=== PATIENT | female | born 1960 | race African-American/Black ===

== ENCOUNTER 2016-11-22 15:25 | Inpatient (IN) | payer MEDICARE ==
--- NOTE | ~2016-11-22 | OR ---
Unit #: [id number] #: [id number] Patient: MARNIE SOLER [id number] [address] [address] [id number] I MR#: [id number] NAME: MARNIE SOLER ROOM: 465 Date of Procedure: 11/24/2016 Admission Date: 11/22/2016 Surgeon: Mark Tinsley M.D. : 1960 Attending Physician: Dejan White M.D. Primary Care Physician: Brandie Romeo OPERATIVE REPORT PREOPERATIVE DIAGNOSIS Right distal radius fracture. POSTOPERATIVE DIAGNOSIS Right distal radius fracture. PROCEDURE PERFORMED Application of right short-arm cast. ASSISTANTS Adolph and Jocelyne. ANESTHESIA None. INDICATIONS FOR PROCEDURE This 56-year-old female, fell 2 days ago sustaining a minimally displaced right distal radius fracture. She has pre-existing right hemiparesis and left nondisplaced patellar fracture as well. She does not have significant displacement to warrant open reduction and internal fixation. She will, therefore, be treated in a short-arm fiberglass cast. DESCRIPTION OF PROCEDURE With the patient supine in bed, a stockinette was applied with appropriate cast padding, two layers of 3 inch fiberglass was applied, and a well-padded well-molded short-arm fiberglass cast was applied without difficulty. The patient tolerated the procedure well. PLAN Plan is to keep the cast on for 6 weeks and to limit her weightbearing using a platform walker. Dictated by..Marisa Reveles/lacho TD: 11/25/2016 00:05 JOB #: [id number] Unit #: [id number] #: [id number] Patient: MARNIE SOLER OPERATIVE REPORT Page 1 of 1 X Marc Tisnley MD X PROCEDURE OPERATIVE NOTE
--- NOTE | ~2016-11-22 | CR282 ---
[facility] Service of [facility] & [facility] RADIOLOGY TEXT RESULTS PATIENT: MARNIE SOLER LOCATION: [facility] 465-01 : 60 UNIT #: [id number] AGE: [address]: Dejan White MD SEX: F ORDER DR: [id number] [place], [place] [address] [id number] I MR#: [id number] Acc #: [id number] NAME: MARNIE SOLER : 1960 SEX: F STUDY DATE/TIME: 11/23/2016 22:50 UNIT: [facility] ROOM: [facility] STUDY DESCRIPTION: CR Wrist Min 3 View Rt Attending Physician: Dejan White M.D. Ordering Physician: Mark Tinsley M.D. Primary Care Physician: Brandie Romeo MEDICAL IMAGING REPORT This report is preliminary unless electronic signature is present EXAM Right wrist INDICATION Wrist fracture yesterday with fall. These are postreduction images. FINDINGS 4 images were obtained of the wrist with the wrist in a fiberglass cast. There is a fracture visible in the distal radius. The fracture plane is running through the longitudinal plane through the bone and is about 2-3 cm long. There does not appear to be any significant change between this study and the previous images. There is minimal displacement. Dictated by... Alessandro Pichardo M.D. THIS IS AN ELECTRONICALLY VERIFIED REPORT Alessandro Pichardo M.D. at 11/24/2016 3:38 AM Richelle TD: 11/24/2016 01:00 JOB #: [id number] MEDICAL IMAGING REPORT Page 1 of 1 COPY
--- NOTE | ~2016-11-22 | CR142 ---
[facility] A Service of [facility] RADIOLOGY TEXT RESULTS PATIENT: MARNIE SOLER LOCATION: [place] [address]- : 60 UNIT #: [id number] AGE: [address]: OMER DAVE MD SEX: F ORDER DR: [id number] [place] [address] [id number] [facility]. [place], [place] [address] [id number] E MR#: [id number] Acc #: [id number] NAME: MARNIE SOLER : 1960 SEX: F STUDY DATE/TIME: 11/22/2016 17:34 UNIT: [facility] ROOM: STUDY DESCRIPTION: CR Hand Min 3 Views Rt Attending Physician: Anand Solares M.D. Ordering Physician: Anand Solares M.D. Primary Care Physician: Brandie Parra M.D. MEDICAL IMAGING REPORT This report is preliminary unless electronic signature is present EXAM Right hand, 11/22/2016 INDICATIONS Fell today; pain, swelling. TECHNIQUE 3 views of the right hand. COMPARISON No comparisons. FINDINGS The bones are osteoporotic. There is nonstandard positioning. These were the best images possible, given the patient's functional status. There is a complete mildly displaced fracture of the distal radius with interarticular extension to the radiocarpal joint. The fracture has both longitudinal and transversely oriented components. On the lateral projection, there is diastases of the longitudinal component up to about 3-4 mm. No distinct additional fracture. IMPRESSION 1. Osteoporosis with a stellate complete interarticular fracture of the distal radius. There appear to be both longitudinal and transversely oriented components to the fracture with diastases of the longitudinal component up to 3-4 mm. 2. Soft tissue swelling. STAT * RESULT Dictated by... Too Castrejon M.D. [facility] A Service of [facility] RADIOLOGY TEXT RESULTS PATIENT: MARNIE SOLER LOCATION: [facility] 465- : 60 UNIT #: [id number] AGE: [address]: OMER DAVE MD SEX: F ORDER DR: THIS IS AN ELECTRONICALLY VERIFIED REPORT Too Castrejon M.D. at 11/22/2016 11:04 PM Alex TD: 11/22/2016 18:42 JOB #: [id number] MEDICAL IMAGING REPORT Page 1 of 1 COPY
--- NOTE | ~2016-11-22 | CT71 ---
[facility] A Service of [facility] RADIOLOGY TEXT RESULTS PATIENT: MARNIE SOLER LOCATION: [facility] 465-01 : 60 UNIT #: [id number] AGE: [address]: Dejan White MD SEX: F ORDER DR: [id number] [facility] [address] [facility]. [place], [place] [address] [id number] I MR#: [id number] Acc #: [id number] NAME: MARNIE SOLER : 1960 SEX: F STUDY DATE/TIME: 11/23/2016 16:43 UNIT: [facility] ROOM: [facility] STUDY DESCRIPTION: CT Head Wo Contrast Attending Physician: Dejan White M.D. Ordering Physician: Dejan White M.D. Primary Care Physician: Brandie Parra M.D. MEDICAL IMAGING REPORT This report is preliminary unless electronic signature is present EXAM Head CT without contrast, 11/23/2016 HISTORY Generalized weakness and fall on 11/22/2016. Overall decline, increased forgetfulness since 11/22/2016. Hypertension and diabetes. Previous stroke. FINDINGS Multiple axial images were obtained from the skull base to vertex without intravenous contrast administration. This CT exam was performed with one or more of the following radiation dose reduction techniques: Automatic exposure control, adjustment of mA and/or kV according to patient size, and iterative reconstruction. There is a large area of encephalomalacia involving the left middle cerebral artery distribution, characteristic of an old infarct. There is mild generalized atrophy. There is no midline shift. There is no mass or mass effect, hemorrhage or acute infarct. The visualized paranasal sinuses are clear. 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 No acute intracranial abnormality. Dictated by... Dustin Marte M.D. THIS IS AN ELECTRONICALLY VERIFIED REPORT Dustin Marte M.D. at 11/24/2016 8:30 AM HARISH/kirsten [facility] A Service [facility] RADIOLOGY TEXT RESULTS PATIENT: MARNIE SOLER LOCATION: [facility] 465- : 60 UNIT #: [id number] AGE: [address]: Dejan White MD SEX: F ORDER DR: TD: 11/23/2016 21:35 JOB #: [id number] MEDICAL IMAGING REPORT Page 1 of 1 COPY
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
--- NOTE | ~2016-11-22 | EKG ---
PATIENT: MARNIE SOLER UNIT #: [id number] Ventricular Rate: 80 BPM Atrial Rate: 80 BPM P-R Interval: 152 ms QRS Duration: 92 ms Q-T Interval: 400 ms QTC Calculation(Bezet): 461 ms P [place]: 68 degrees Calculated R [place]: 64 degrees Calculated T [place]: 52 degrees Diagnosis Line: Normal sinus rhythm Diagnosis Line: Normal ECG Diagnosis Line: When compared with ECG of 11-SEP-2015 22:38, Diagnosis Line: No significant change was found Diagnosis Line: Confirmed by BASSAM VARGAS MD ([id number]) on Diagnosis Line: 11/23/2016 9:10:34 PM INTERPRETING MD: KARINA
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
--- NOTE | ~2016-11-22 | CR172 ---
[facility] A Service of [facility] RADIOLOGY TEXT RESULTS PATIENT: MARNIE SOLER LOCATION: [facility] 465-01 : 60 UNIT #: [id number] AGE: [address]: OMER DAVE MD SEX: F ORDER DR: [id number] [place] [id number] [facility]. [place], [place] [address] [id number] E MR#: [id number] Acc #: [id number] NAME: MARNIE SOLER : 1960 SEX: F STUDY DATE/TIME: 11/22/2016 17:29 UNIT: [facility] ROOM: STUDY DESCRIPTION: CR Knee 3 Views Lt Attending Physician: Anand Solares M.D. Ordering Physician: Anand Solares M.D. Primary Care Physician: Brandie Parra M.D. MEDICAL IMAGING REPORT This report is preliminary unless electronic signature is present EXAM Left knee 11/22/2016 INDICATIONS 56-year-old female with pain, weakness and swelling since a fall today. Pain and swelling in the left knee. TECHNIQUE Left knee, 3 views. COMPARISON No comparisons. FINDINGS Examination is abnormal. There is a stellate fracture through the patella involving its mid and inferior aspects. The inferior margin of the stellate fracture is complete. There is a joint effusion with probable blood products. There is degenerative change of the quadriceps tendon insertion. IMPRESSION 1. Stellate complete fracture of the patella. No significant displacement. 2. Joint effusion. 3. Soft tissue swelling anteriorly. STAT * RESULT Dictated by... Too Castrejon M.D. THIS IS AN ELECTRONICALLY VERIFIED REPORT [facility] A Service of [facility] RADIOLOGY TEXT RESULTS PATIENT: MARNIE SOLER LOCATION: [facility] 465-01 : [birth year] UNIT #: [id number] AGE: [address]: OMER DAVE MD SEX: F ORDER DR: Too Castrejon M.D. at 11/22/2016 11:04 PM OLGA/mario TD: 11/22/2016 18:39 JOB #: [id number] MEDICAL IMAGING REPORT Page 1 of 1 COPY
--- NOTE | ~2016-11-22 | CR282 ---
[facility] A Service of [facility] & [facility] RADIOLOGY TEXT RESULTS PATIENT: MARNIE SOLER LOCATION: [facility] 465-01 : [birth year] UNIT #: [id number] AGE: [address]: Dejan White MD SEX: F ORDER DR: [id number] [facility] [address] [facility]. [place], [place] [address] [id number] I MR#: [id number] Acc #: [id number] NAME: MARNIE SOLER : 1960 SEX: F STUDY DATE/TIME: 11/22/2016 17:36 UNIT: [facility] ROOM: [facility] STUDY DESCRIPTION: CR Wrist Min 3 View Rt Attending Physician: Kael Villalobos M.D. Ordering Physician: Anand Solares M.D. Primary Care Physician: Brandie Romeo MEDICAL IMAGING REPORT This report is preliminary unless electronic signature is present EXAM Right wrist, 11/22/2016 INDICATIONS Wrist pain and weakness with swelling after fall today. FINDINGS 4 views of the wrist were obtained. Patient is osteopenic. There is a comminuted intraarticular fracture of the distal radius. Primary fracture fragments are only mildly displaced. Additionally, there is some cortical irregularity along the peripheral margin of the triquetrum which could reflect a nondisplaced fracture. IMPRESSION Osteopenia. Comminuted intraarticular fracture of the distal radius, mildly displaced. There is also questionable nondisplaced fracture of the triquetrum. Dictated by... Cheo Rehman Jr., M.D. THIS IS AN ELECTRONICALLY VERIFIED REPORT Cheo Rehman Jr., M.D. at 11/23/2016 10:01 AM CHARLIE/hermila TD: 11/23/2016 03:59 JOB #: [id number] MEDICAL IMAGING REPORT Page 1 of 1 COPY
[~2016-11-22 15:25] MED LIST: ALLERGY10 M2 PO; AMLODIPINE BESYL5 MG PO; ASPIRIN81 MG; BACTRIM DS TABL1 TA2 PO; BAYER CHEWABLE81 MG PO; DYRENIUM100 MG PO; FERRO-TIME325 MG PO; FLEXERIL PO; GLIPIZIDE2.5 MG/BO1 PO; GLUCOPHAGE XR500 MG PO; KETOPROFEN PO; LISINOPRIL-HCTZ1 T15 PO; MEDROL4 MG/DOSE- PO; MOBIC PO; PAROXETINE HCL20 MG PO; PHENERGAN DM1 ML PO; PROTONIX PO; TRIAMCINOLONE A15 G3 EXT; TRIAMTERENE-HC1 EACH; VITAMIN C1000 M2 PO; WOMEN'S DAILY F1 TAB PO; ZITHROMAX PO; [UNRECOGNIZED DRUG - SUPPLY]
[2016-11-22 17:29] LABS: URINE SOURCE CLEAN CATCH
[2016-11-22 17:39] LABS: URINE APPEARANCE CLEAR; URINE BILIRUBIN NEG (NEG); URINE BLOOD NEG (NEG); URINE COLOR YELLOW; URINE GLUCOSE 100 MG/DL (NEG); URINE KETONE NEG (NEG); URINE LEUKOCYTE ESTERASE TRACE (NEG); URINE NITRATE NEG (NEG); URINE PH 7.5 (5-8); URINE PROTEIN TRACE (NEG); URINE SPECIFIC GRAVITY 1.012 (1.003-1.035)
[2016-11-22 17:42] LABS: CULTURE INDICATED? YES; U HYALINE CASTS AUWI 0-2 /[LPF]; URBCS1 AUWI 0-2 /[HPF] (0-2); URINE BACTERIA AUWI NEG (NEGATIVE); URINE SQUAMOUS EPITHELIAL CELL OCC /[HPF]
[2016-11-22 18:16] LABS: BASOPHIL% 0.3 % (0-2.5); EOSINOPHIL% 0.3 % (0.0-7.0); HEMATOCRIT 38.5 % (35.0-45.0); HEMOGLOBIN 12.3 gm/dL (12.0-16.0); LYMPHOCYTE# 1.5 X10e3 (1.0-3.5); LYMPHOCYTE% 18.9 % (17.0-45.0); MEAN CELL VOLUME 89.5 FL (83-96); MEAN CORPUSCULAR HEMOGLOBIN 28.6 PG (28-34); MEAN CORPUSCULAR HGB CONC 31.9 g/dL (30-36); MEAN PLATELET VOLUME 7.9 FL (6.5-11.5); MONOCYTE# 0.9 X10e3 (0-1.0); MONOCYTE% 11.4 % (3.0-12.0); NEUTROPHIL# 5.5 X10e3 (1.5-7.1); NEUTROPHIL% 69.1 % (40-75); PLATELET COUNT 207 X10e3 (140-420); RED CELL DISTRIBUTION WIDTH 14.6 % (11.0-15.5)
[2016-11-22 18:23] LABS: DIFF IND NO
[2016-11-22 18:40] LABS: ALBUMIN SERUM 3.6 g/dL (3.5-5.0); BILIRUBIN, DIRECT 0.1 mg/dL (0.0-0.2); BILIRUBIN,INDIRECT 0.5 mg/dL (0.0-0.9); BILIRUBIN,TOTAL 0.6 mg/dL (0.2-2.0); BUN/CREATININE RATIO 15.71; CALCIUM SERUM 8.8 mg/dL (8.4-10.2); CREATININE SERUM 0.7 mg/dL (0.6-1.4); GLOM FILT RATE Estimated 112.3 mL/min (>60); POTASSIUM 3.2 mmol/L (3.5-5.1); PROTEIN TOTAL SERUM 7.7 g/dL (6.0-8.3)
[2016-11-22] MEDS ORDERED: GLIPIZIDE10 MG PO (20:40)
[2016-11-22] MEDS ORDERED: ASPIRIN81 M2 PO (20:40)
[2016-11-22] MEDS ORDERED: PAXIL10 MG PO (20:41)
[2016-11-22] MEDS ORDERED: PANTOPRAZOLE SO20 MG PO (20:41)
[2016-11-22] MEDS ORDERED: AMLODIPINE BESY10 MG PO (20:42)
[2016-11-22] MEDS ORDERED: ZYRTEC10 M1 PO (20:42)
[2016-11-23 03:16] LABS: BASOPHIL% 0.4 % (0-2.5); LYMPHOCYTE# 1.1 X10e3 (1.0-3.5); MEAN CELL VOLUME 89.3 FL (83-96); MEAN CORPUSCULAR HEMOGLOBIN 28.2 PG (28-34); MEAN CORPUSCULAR HGB CONC 31.6 g/dL (30-36); MEAN PLATELET VOLUME 8.2 FL (6.5-11.5); MONOCYTE# 0.8 X10e3 (0-1.0); MONOCYTE% 7.9 % (3.0-12.0); NEUTROPHIL# 8.1 X10e3 (1.5-7.1); NEUTROPHIL% 80.7 % (40-75); PLATELET COUNT 199 X10e3 (140-420); RED BLOOD COUNT 4.26 X10e (3.90-5.30); RED CELL DISTRIBUTION WIDTH 15.1 % (11.0-15.5)
[2016-11-23 03:20] LABS: DIFF IND NO
[2016-11-23 03:46] LABS: CALCIUM SERUM 8.5 mg/dL (8.4-10.2); CREATININE SERUM 0.5 mg/dL (0.6-1.4); GLOM FILT RATE Estimated 125.4 mL/min (>60); POTASSIUM 3.2 mmol/L (3.5-5.1)
[2016-11-24 03:15] LABS: HEMATOCRIT 38.5 % (35.0-45.0); HEMOGLOBIN 12.3 gm/dL (12.0-16.0); MEAN CELL VOLUME 89.6 FL (83-96); MEAN CORPUSCULAR HEMOGLOBIN 28.7 PG (28-34); MEAN PLATELET VOLUME 7.5 FL (6.5-11.5); RED BLOOD COUNT 4.3 X10e (3.90-5.30); RED CELL DISTRIBUTION WIDTH 14.9 % (11.0-15.5); WHITE BLOOD COUNT 7.9 X10e3 (4.0-10.5)
[2016-11-24 04:18] LABS: BUN/CREATININE RATIO 8.33; CALCIUM SERUM 8.7 mg/dL (8.4-10.2); CREATININE SERUM 0.6 mg/dL (0.6-1.4); GLOM FILT RATE Estimated 118.1 mL/min (>60); POTASSIUM 3.2 mmol/L (3.5-5.1)
[2016-11-24 17:08] LABS: URINE APPEARANCE CLEAR; URINE BILIRUBIN NEG (NEG); URINE BLOOD NEG (NEG); URINE COLOR YELLOW; URINE GLUCOSE 100 MG/DL (NEG); URINE KETONE NEG (NEG); URINE LEUKOCYTE ESTERASE NEG (NEG); URINE NITRATE NEG (NEG); URINE PROTEIN TRACE (NEG)
[2016-11-25 03:54] LABS: BUN/CREATININE RATIO 8.33; CALCIUM SERUM 8.9 mg/dL (8.4-10.2); CREATININE SERUM 0.6 mg/dL (0.6-1.4); GLOM FILT RATE Estimated 118.1 mL/min (>60); POTASSIUM 3.6 mmol/L (3.5-5.1)
== END 2016-11-25 18:00 | DRG 563 ==
LOC: CED 15:25 → SED 17:29 → CED 17:29 → CEDOF 19:20 → C4C 19:20 → CEDOF 19:43 → CED 19:43 → C4C 20:02 → CEDOF 20:02 → C4C 11-23 07:54 → CEDOF 11-23 11:24 → C4C 11-23 11:25 → CEDOF 11-23 11:25 → C4C 11-25 18:00
PROVIDERS: Emergency Medicine; Internal Medicine
PROC: 2W3CX2Z Immobilization of Right Lower Arm using Cast (ICD-10-PCS; principal; 2016-11-24)
DX: S52.501A Unspecified fracture of the lower end of right radius, initial encounter for closed fracture (principal); E87.1 Hypo-osmolality and hyponatremia; I10 Essential (primary) hypertension; I69.351 Hemiplegia and hemiparesis following cerebral infarction affecting right dominant side; S82.002A Unspecified fracture of left patella, initial encounter for closed fracture; W01.0XXA Fall on same level from slipping, tripping and stumbling without subsequent striking against object, initial encounter; Y92.22 Religious institution as the place of occurrence of the external cause; I69.320 Aphasia following cerebral infarction; F17.210 Nicotine dependence, cigarettes, uncomplicated; E11.9 Type 2 diabetes mellitus without complications; Z79.84 Long term (current) use of oral hypoglycemic drugs; F32.9 Major depressive disorder, single episode, unspecified; M19.90 Unspecified osteoarthritis, unspecified site; Z83.3 Family history of diabetes mellitus; E87.6 Hypokalemia
CPT/HCPCS: 29125; 70450; 73110; 73130; 73562; 80048; 80076; 81003; 82947; 85025; 85027; 87086; 93005; 97110; 97116; 97162; 97530; 99285; G8978-GP; G8979-GP; G8980-GP; J1650; J1815; J2270; J2405